=== PATIENT | female | born 1990 | race Caucasian/White ===

== ENCOUNTER 2024-11-03 20:58 | Emergency (ER) | payer MEDICAID ==
[~2024-11-03] VITALS: Ht 162.6 cm; Wt 54.5 kg
[2024-11-03] MEDS ORDERED: OLAN5TAB5 PO (21:39)
--- NOTE | 2024-11-03 22:09 | Physician Documentation ---
History of Present Illness ~ Chief Complaint: Psych Stated Complaint: EVAL Time Seen by MD: 22:01 HPI Patient presents to the emergency room with psychiatric episode. [place] been off of her medication. Family believes she is in a manic state. Officers placed her on a 5150. Currently she is very paranoid but does endorse that she has not slept in three days. Medication Reconciliation Allergies: Coded Allergies: No Allergy Information Available (Unverified , 11/03/24) pt is refusing to answer. Discontinued Medications Olanzapine* (Zyprexa Zydis Odt*), 2 TAB PO DAILY, (Reported) Discontinued Reason: patient no longer taking Review of Systems ROS All review of systems negative except as per HPI Physical Exam Vital Signs: Temperature: 98.1, Heart Rate: 91, Respiratory Rate: 20, BP: 144/84, Pulse Oximetry: 99, Weight: 54.550 Physical Exam General: Patient is awake, alert, anxious Head: Normocephalic and atraumatic. Eyes: Conjunctival normal. EOMI. PERRL. ENT: Mucous membranes moist. Neck: Supple, trachea is midline. Chest: Clear to auscultation bilaterally without rales, rhonchi, or wheezes. There is no accessory muscle use or retractions. Cardiac: RRR without murmurs, gallops, or rubs. Psych: Patient appears scared and paranoid, good eye contact, avoidant Progress Results/Orders Results/Orders Orders - ELVIN ANDERSON MD Urinalysis (11/03/24 22:02) Hcg, Ur Ql (11/03/24 22:02) Drug Screen, Urine (11/03/24 22:02) Med Rec (11/03/24 22:02) Close Observation Level (11/03/24 22:02) Covid19 Binax Poc Result Entry (11/03/24 22:02) Substance Use Navigator (11/03/24 22:02) Regular Diet (11/04/24 Breakfast) Completed Orders - ELVIN ANDERSON MD Cbc/Diff (11/03/24 22:02) Ethanol (11/03/24 22:02) TSH (11/03/24 22:02) BMP (11/03/24 22:02) Haloperidol Lact. (Haldol) (11/03/24 22:54) Diphenhydramine Inj (Benadryl Inj.) (11/03/24 22:40) Diazepam Inj (Valium Inj) (11/03/24 22:40) Potassium Cl Sr Tablet (K-Dur Tablet) (11/03/24 23:09) Hcg Serum Ql (11/03/24 23:09) Haloperidol Lact. (Haldol) (11/03/24 23:15) Diazepam Inj (Valium Inj) (11/03/24 23:15) Diazepam Inj (Valium Inj) (11/04/24 00:15) Olanzapine Im (Zyprexa I.M. Im On (11/04/24 00:15) Medications Received in ER Medications (Trade) Dose Ordered Sig/Nida Route PRN Reason Start Time Stop Time Status Last Admin Dose Admin (Benadryl inj.) 50 mg ONCE ONCE IM 11/03/24 22:40 11/03/24 22:41 DC 11/03/24 23:02 50 MG (Haldol) 10 mg ONCE ONCE IM 11/03/24 23:15 11/03/24 23:16 DC 11/03/24 23:19 10 MG (Valium inj) 5 mg ONCE ONCE IM 11/03/24 23:15 11/03/24 23:16 DC 11/03/24 23:18 5 MG (Valium inj) 10 mg ONCE ONCE IM 11/04/24 00:15 11/04/24 00:20 DC 11/04/24 00:28 10 MG (ZyPREXA I.M. IM ONLY) 10 mg ONCE ONCE IM 11/04/24 00:15 11/04/24 00:20 DC 11/04/24 00:35 10 MG Vital Signs 11/03/24 21:01 Temp 98.1 Pulse 91 Resp 20 B/P (MAP) 144/73 Pulse Ox 99 Laboratory Tests Test 11/03/24 22:11 11/04/24 00:09 White Blood Count 10.5 Red Blood Count 4.25 Hemoglobin 13.6 Hematocrit 39.7 Mean Corpuscular Volume 93.5 Mean Corpuscular Hemoglobin 32.1 H Mean Corpuscular Hemoglobin Concent 34.3 Red Cell Distribution Width 13.2 Platelet Count 283 Mean Platelet Volume 8.1 Neutrophils (%) (Auto) 55.6 Lymphocytes (%) (Auto) 28.2 Monocytes (%) (Auto) 11.3 Eosinophils (%) (Auto) 4.0 Basophils (%) (Auto) 0.9 Neutrophils # (Auto) 5.8 Lymphocytes # (Auto) 2.9 Monocytes # (Auto) 1.2 H Eosinophils # (Auto) 0.4 Basophils # (Auto) 0.1 CBC Comment Sodium Level 143 Potassium Level 3.4 L Chloride Level 108 H Carbon Dioxide Level 23.7 L Anion Gap 11 Blood Urea Nitrogen 7 Creatinine 0.73 Estimated GFR/1.73 m2 > 90 BUN/Creatinine Ratio 9.6 L Glucose Level 94 Calcium Level 9.0 Albumin 3.9 Thyroid Stimulating Hormone (TSH) 0.79 Chemistry Comments Ethyl Alcohol Level < 10 Human Chorionic Gonadotropin, Qual Negative Medical Decision Making Findings Patient presented to the emergency room on 5150 as per HPI. Labs reviewed and there was no evidence of major pathologic derangements however mildly low potassium which has been replenished. Patient is medically cleared for mental health evaluation Differential Dx:Considerations: Include: Anxiety, Bipolar disorder, Depression, Encephaloathy, Personality disorder, Schizophrenia, Substance abuse Departure Disposition: 30 STILL A PATIENT Impression: Primary Impression: Psychosis Additional Impression: Hypokalemia Condition: Guarded Referrals: NO PRIMARY CARE PROVIDER (PCP) Signature Scribe Signature: No scribe Attestation: The note accurately reflects work and decisions made by me.Elvin Anderson MD 11/04/24 01:27 ELVIN ANDERSON MD November 03, 2024 22:09
[2024-11-03 22:20] LABS: BASOPHILS # (AUTO) 0.1 X10'3 (0-0.2); BASOPHILS % (AUTO) 0.9 % (0-1); EOSINOPHILS # (AUTO) 0.4 X10'3 (0-0.9); HEMATOCRIT 39.7 % (35.0-45.0); HEMOGLOBIN 13.6 g/dl (12.0-16.0); LYMPHOCYTES # (AUTO) 2.9 X10'3 (1.1-4.8); LYMPHOCYTES % (AUTO) 28.2 % (21-51); MEAN CORPUSCULAR HEMOGLOBIN 32.1 PG (27.0-31.0); MEAN CORPUSCULAR HGB CONC 34.3 g/dL (33.0-36.5); MEAN CORPUSCULAR VOLUME 93.5 FL (78-98); MEAN PLATELET VOLUME 8.1 FL (7.4-10.4); MONOCYTES # (AUTO) 1.2 X10'3 (0-0.9); MONOCYTES % (AUTO) 11.3 % (2-12); NEUTROPHILS # (AUTO) 5.8 X10'3 (1.8-7.7); NEUTROPHILS % (AUTO) 55.6 % (42-75); PLATELET COUNT 283 X10'3 (140-440); RED BLOOD COUNT 4.25 X10'6 (4.20-5.60); RED CELL DISTRIBUTION WIDTH 13.2 % (11.5-14.5); WHITE BLOOD COUNT 10.5 X10'3 (4.5-11.0)
[2024-11-03 22:42] LABS: ALBUMIN 3.9 G/DL (3.4-5.0); ANION GAP 11 (8-16); BLOOD UREA NITROGEN 7 MG/DL (7-18); BUN/CREATININE RATIO 9.6 (10.0-20.0); CHLORIDE 108 MMOL/L (99-107); CREATININE 0.73 MG/DL (0.40-0.90); ETHANOL < 10 MG/DL (<10); GLUCOSE 94 MG/DL (70-104); POTASSIUM 3.4 MMOL/L (3.5-5.1); SODIUM 143 MMOL/L (135-145); THYROID STIMULATING HORMONE 0.79 ulU/ml (0.34-4.50); TOTAL CARBON DIOXIDE 23.7 MMOL/L (24-32); eCRCL 94 ML/MIN; eGFR > 90 ML/MIN
[2024-11-03] MEDS: haloperidol lactate 5mg/ml inj IM ONE ×2 (23:01→23:19)
[2024-11-03] MEDS: diazepam inj 5 MG/ML inj. IM ONE ×2 (23:02→23:18)
[2024-11-03] MEDS: diphenhydrAMINE 50 mg/ml inj IM ONE (23:02)
[2024-11-03] MEDS: potassium Cl 20 mEq SR tablet PO STA (23:09)
[2024-11-04] MEDS: diazepam inj 5 MG/ML inj. IM ONE (00:28)
[2024-11-04] MEDS: OLANZapine **IM** 10 mg inj. IM ONE (00:35)
[2024-11-04 00:50] LABS: HCG SERUM QL NEGATIVE
[2024-11-04 13:08] LABS: URINE HCG NEGATIVE (NEG)
[2024-11-04 13:12] LABS: BILIRUBIN,URINE MODERATE (Neg); CLARITY,URINE SLIGHTLY CLOUDY (Clear); COLOR,URINE YELLOW (Yellow); GLUCOSE, URINE NEGATIVE (Neg); KETONES,URINE 15 mg/dl (Neg); LEUKOCYTE ESTERASE ,URINE NEGATIVE (Neg); NITRITES, URINE NEGATIVE (Neg); OCCULT BLOOD,URINE MODERATE (Neg); PROTEIN,URINE TRACE mg/dl (Neg); UROBILINOGEN,URINE 0.2 E.U/dL (0.2-1.0)
[2024-11-04 13:30] LABS: URINE AMPHETAMINE SCREEN NEGATIVE (Neg); URINE BARBITUATE SCREEN NEGATIVE (Neg); URINE BENZODIAZEPINES SCREEN POSITIVE (Neg); URINE CANNABINOID SCREEN POSITIVE (Neg); URINE COCAINE SCREEN NEGATIVE (Neg); URINE METHADONE SCREEN NEGATIVE (Neg); URINE OPIATE SCREEN NEGATIVE (Neg); URINE PHENCYCLIDINE SCREEN NEGATIVE (Neg)
[2024-11-04 13:35] LABS: UA COLLECTION TYPE CLN CATCH MIDSTREAM
[2024-11-04 13:37] LABS: SQUAMOUS EPITHELIAL CELL,UR FEW /LPF (FEW)
[2024-11-04 13:42] LABS: YEAST FEW /HPF (NEGATIVE)
[2024-11-04 13:46] LABS: BACTERIA,URINE FEW /HPF (Neg)
[2024-11-04 13:52] LABS: AMORPHOUS URATES 2+; MUCUS STRANDS MODERATE /LPF (Neg)
[2024-11-04] MEDS: haloperidol lactate 5mg/ml inj IM ONE (16:30)
[2024-11-04] MEDS: traZODone 50mg tablet PO ONE (21:00)
[2024-11-04] MEDS: diphenhydrAMINE 25mg capsule PO ONE (21:15)
[2024-11-04] MEDS: Melatonin 3mg tablet PO ONE (21:15)
[2024-11-04] MEDS: zolpidem 5mg tablet PO ONE (21:15)
[2024-11-05] MEDS: diphenhydrAMINE 25mg capsule PO ONE (09:38)
[2024-11-05 10:30] VITALS: BP 107/70; PULSE 14; RESP 16; TEMP 97.7; O2SAT 96
== END 2024-11-05 10:16 | disposition still patient (30) ==
LOC: ER 21:00
DX: F29 Unspecified psychosis not due to a substance or known physiological condition (principal); E87.6 Hypokalemia; F20.0 Paranoid schizophrenia; Z20.822 Contact with and (suspected) exposure to COVID-19
CPT/HCPCS: 36415; 80048; 80305; 80320; 81001; 81025; 84443; 84703; 85025; 96372; 99285; J1200; J1630; J3360; J3490; Q0163